=== PATIENT | female | born 1980 | race Caucasian/White ===

== ENCOUNTER 2020-11-17 18:23 | Inpatient (IN) | payer OTHER ==
[~2020-11-17] VITALS: Ht 162.6 cm; Wt 67.2 kg
[2020-11-17 18:43] VITALS: BP 113/71
[2020-11-17] MEDS ORDERED: PREN-217 PO (18:55)
[2020-11-17] MEDS ORDERED: RINGERS SOLUTION,LACTATED 1,000 ML IV PRN (19:00)
[2020-11-17] MEDS ORDERED: OXYTOCIN 30 UNITS/LACT RINGERS 500 ML IV ONE (19:00)
[2020-11-17] MEDS ORDERED: CITRIC ACID/SODIUM CITRATE 30 ML SOLUTION UDCUP PO PRN (19:00)
[2020-11-17] MEDS ORDERED: FentaNYL CITRATE PF 100 MCG/2 ML VIAL IVP PRN (19:00)
[2020-11-17] MEDS ORDERED: METOCLOPRAMIDE HCL 5 MG/ML 2 ML VIAL IVP PRN (19:00)
[2020-11-17] MEDS ORDERED: DINOPROSTONE 10 MG VAGINAL SUPPOSITORY VG ONE (19:45)
[2020-11-17] MEDS ORDERED: OXYGEN THERAPY IH SCH (20:00)
[2020-11-17] MEDS: RINGERS SOLUTION,LACTATED 1,000 ML IV SCH (20:02)
[2020-11-17 20:29] LABS: COVID AG,FIA SOURCE NASOPHARYNGEAL
[2020-11-17 20:32] LABS: BASOPHILS % (AUTO) 0.8 % (0.0-2.0); EOSINOPHILS % (AUTO) 0.3 % (1.0-6.0); HEMATOCRIT 34.9 % (36-46); HEMOGLOBIN 11.7 g/dL (12.0-16.0); LYMPHOCYTES # (AUTO) 1.3 K/uL (1.0-4.8); LYMPHOCYTES % (AUTO) 10.1 % (22.0-44.0); MEAN CORPUSCULAR HEMOGLOBIN 29.3 pg (26.0-34.0); MEAN CORPUSCULAR HGB CONC 33.4 G/dL (31.0-37.0); MEAN CORPUSCULAR VOLUME 88 fL (80-100); MONOCYTES # (AUTO) 0.7 K/uL (0.1-1.0); MONOCYTES % (AUTO) 5.5 % (2.0-9.0); NEUTROPHILS # (AUTO) 10.9 K/uL (1.8-7.7); NEUTROPHILS % (AUTO) 83.3 % (40.0-70.0); PLATELET COUNT (AUTO) 168 K/uL (150-450); RED BLOOD CELL COUNT(AUTO) 3.97 MIL/uL (4.00-5.20); RED CELL DISTRIBUTION WIDTH 13.7 % (11.5-14.5)
[2020-11-18] MEDS: RINGERS SOLUTION,LACTATED 1,000 ML IV SCH ×2 (02:35→13:34)
[2020-11-18] MEDS ORDERED: -PHARMACY NOTE- MISC ONE (07:45)
[2020-11-18] MEDS ORDERED: OXYTOCIN 30 UNITS/LACT RINGERS 500 ML IV PRN (09:00)
[2020-11-18] MEDS ORDERED: ROPIVACAINE HCL/PF 0.2% 100 ML ED ONE (09:11)
[2020-11-18 09:56] VITALS: BP 102/62
[2020-11-18] MEDS ORDERED: ROPIVACAINE HCL/PF 0.2% 100 ML ED PRN (12:15)
[2020-11-18] MEDS ORDERED: DiphenhydrAMINE HCL 50 MG/ML VIAL IVP PRN (12:15)
[2020-11-18] MEDS ORDERED: ONDANSETRON HCL 4 MG/2 ML VIAL IVP PRN (12:15)
[2020-11-18] MEDS ORDERED: NALBUPHINE HCL 10 MG/ML VIAL IVP PRN (12:15)
[2020-11-18] MEDS ORDERED: BENZOCAINE 20%/MENTHOL 56 GM SPRAY CANISTER TP PRN (15:00)
[2020-11-18] MEDS ORDERED: LANOLIN 7 GM OINTMENT TP PRN (15:00)
[2020-11-18] MEDS ORDERED: GLYCERIN/WITCH HAZEL LEAF 40 PADS JAR TP PRN (15:00)
[2020-11-18] MEDS ORDERED: ACETAMINOPHEN/CODEINE 300-30 MG TABLET PO PRN ×2 (15:00)
[2020-11-18] MEDS: IBUPROFEN 800 MG TABLET PO SCH ×2 (15:41→21:48)
[2020-11-18] MEDS: MAGNESIUM HYDROXIDE SUSPENSION 30 ML UDCUP PO SCH (21:17)
[2020-11-19] MEDS: IBUPROFEN 800 MG TABLET PO SCH ×2 (06:04→12:15)
[2020-11-19 08:53] VITALS: BP 110/58
[2020-11-19] MEDS: MAGNESIUM HYDROXIDE SUSPENSION 30 ML UDCUP PO SCH (10:24)
[2020-11-19] MEDS ORDERED: IBUP-2071 PO (11:49)
[2020-11-19] MEDS ORDERED: FERR-89 PO (11:50)
[2020-11-19] MEDS ORDERED: DOCU-275 PO (11:52)
== END 2020-11-19 17:05 | disposition home or self-care (01) | DRG 807 ==
LOC: 4S 18:23 → OBSVTOIN 18:23
PROVIDERS: ADMIT Obstetrics & Gynecology; ATTEND Obstetrics & Gynecology
PROC: 10D07Z6 Extraction of Products of Conception, Vacuum, Via Natural or Artificial Opening (ICD-10-PCS; principal; 2020-11-18)
PROC: 0HQ9XZZ Repair Perineum Skin, External Approach (ICD-10-PCS; 2020-11-18)
PROC: 3E0R3BZ Introduction of Anesthetic Agent into Spinal Canal, Percutaneous Approach (ICD-10-PCS; 2020-11-18)
PROC: 00HU33Z Insertion of Infusion Device into Spinal Canal, Percutaneous Approach (ICD-10-PCS; 2020-11-18)
DX: O70.0 First degree perineal laceration during delivery (principal); Z37.0 Single live birth; Z3A.39 39 weeks gestation of pregnancy; Z20.822 Contact with and (suspected) exposure to COVID-19
CPT/HCPCS: 86850; 86900; 86901; 87426; J2590; J2795; J7120